=== PATIENT | male | born 1990 | race African-American/Black ===

== ENCOUNTER 2018-11-01 08:03 | Inpatient (IN) | payer OTHER ==
[~2018-11-01] VITALS: Ht 177.8 cm; Wt 87.5 kg
[2018-11-01 08:03] VITALS: BP 141/78; BP 1412/78
[2018-11-01 08:57] LABS: ABSOLUTE NEUTROPHILS 8.3 thou/uL (1.4-8.2); BASOPHILS 0.9 % (0.0-2.0); EOSINOPHILS 0.1 % (0.0-3.0); HEMATOCRIT 45.7 % (42.0-52.0); LYMPHOCYTES 18.5 % (24.0-44.0); MCH 22.8 pg (26.0-34.0); MCHC 32.7 g/dL (28.0-37.0); MCV 69.7 fL (80.0-100.0); PLATELET COUNT 508 thou/uL (150-400); POLYS 71.5 % (36.0-66.0); RBC 6.56 mil/uL (4.50-6.00); RDW 14.5 % (10.5-14.5); WBC 11.6 thou/uL (4.0-11.0)
[2018-11-01 09:12] LABS: ANION GAP 18 mmol/L (7-16); BUN 14 mg/dL (7-18); CALCIUM 10.4 mg/dL (8.5-10.1); CHLORIDE 98 mmol/L (98-107); CO2 21 mmol/L (21-32); CREATININE 1.1 mg/dL (0.7-1.3); GLUCOSE 200 mg/dL (74-106); SODIUM 137 mmol/L (136-145)
[2018-11-01 09:19] LABS: ALBUMIN 4.6 g/dL (3.4-5.0); LIPASE 50 U/L (73-393); SALICYLATE < 2.8 mg/dL (2.8-20.0); SGOT 30 U/L (15-37); SGPT 49 U/L (30-65); TOTAL BILIRUBIN 0.6 mg/dL (<0.1-1.0)
[2018-11-01 09:22] LABS: HYPOCHROMASIA 1+; MICROCYTES 1+
[2018-11-01 10:49] LABS: URINE BILIRUBIN NEGATIVE (Negative); URINE BLOOD NEGATIVE (Negative); URINE CLARITY CLEAR; URINE COLOR YELLOW; URINE GLUCOSE-RANDOM* NEGATIVE (Negative); URINE KETONES 1+ (Negative); URINE LEUKOCYTES-REFLEX NEGATIVE (Negative); URINE NITRITE-REFLEX NEGATIVE (Negative); URINE PROTEIN (DIPSTICK) 2+ (Negative); URINE UROBILINOGEN 0.2 E.U./dl (0.2-1.0)
[2018-11-01 10:59] LABS: BACTERIA-REFLEX None Seen /HPF (None Seen); CASTS None Seen /LPF (None Seen); SQUAMOUS None Seen /LPF (0-3); URINE RBC None Seen /HPF (0-2); URINE WBC-REFLEX 0-5 Rare /HPF (0-5)
[2018-11-01 11:00] LABS: CRYSTALS None Seen /LPF (None Seen)
[2018-11-01 11:01] LABS: AMP/METHAMP Negative (Negative); BARBITURATES Negative (Negative); BENZODIAZEPINES Negative (Negative); COCAINE Negative (Negative); METHADONE Negative (Negative); OPIATES POSITIVE (Negative); PCP Negative (Negative)
[2018-11-01 14:48] VITALS: BP 168/95
[2018-11-01 15:45] VITALS: BP 160/73
[2018-11-01 15:50] VITALS: BP 160/73
--- NOTE | 2018-11-01 16:49 | NUR ---
ADMISSION ASSESMENT COMPLETED. A/O. PLEASANT. ANXIOUS. C/O PAIN. SUBOXONE GIVEN ORDERED. PT HAD WARM SHOWER. RESTING IN BED AT THIS TIME. WILL CONT. TO MONITOR.
[2018-11-01 16:59] LABS: % SATURATION 7 % (20-39); IRON 29 ug/dL (65-175); TIBC 410 ug/dL (250-450)
[2018-11-01 17:00] LABS: INR 1.1; PROTIME 11.2 Seconds (9.3-11.4)
--- NOTE | 2018-11-01 17:25 | NUR ---
PT PACING IN AND OUT OF ROOM. STEADY GAIT. NOTED IV OUT. PT LAYING IN BED AT THIS TIME. WILL CONT. TO MONITOR.
[2018-11-01 17:27] LABS: TSH 0.43 uIU/mL (0.358-3.740)
[2018-11-01 17:48] VITALS: BP 168/80
--- NOTE | 2018-11-01 17:50 | NUR ---
PT NOTED TO BE TRYING TO CALL SOMEBODY ON PHONE. STATED HE WAS TRYING REACH HIS MOM. ASSISTED WITH DIALING PHONE NUMBER.
--- NOTE | 2018-11-01 20:54 | NUR ---
ASSESSMENT COMPLETED. [facility] S[facility]. PT HAD AN EPISODE OF EMESIS. PT OBSERVED SIPPING ON 7-UP. AT ONE POINT PT OBSERVED WALKING TO THE ELEVATOR GOING TO PICK HIS FRIENDS FROM [address] [place] [address], HE WAS CLEARLY ADVISED NOT TO LEAVE THE BUILDING. PT ALSO REMINDED THAT HE CANNOT GO OUT TO SMOKE, OFFERED A NICOTINE PATCH BUT HE WAS NOT INTERESTED. 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 THEREAFTER AT ABOUT 2019, A FRIEND CAME IN TO VISIT. AT ABOUT 2029, PT OBSERVED WALKING IN HALLWAY, HE STATED HE WAS GOING TO TAKE HIS FRIEND TO THE VENDING MACHINE. ANYWAY, PT APPARENTLY LEFT THE UNIT AND SECURITY WAS NOTIFIED BY 2034. NICKOLAS BETANCUR NOTIFIED BY 0HRS AND SUPERIVISOR ALSO NOTIFIED.PT NOT HERE BY THIS TIME.
[2018-11-02 14:11] LABS: HEPATITIS C VIRUS AB 0.4 (0.0-0.9)
== END 2018-11-01 21:10 | disposition left against medical advice (07) | DRG 894 ==
LOC: ER 08:03 → EROBS 11:53 → 4E 15:44
PROVIDERS: Emergency Medicine; Internal Medicine Geriatric Medicine; ADMIT Hospitalist
DX: F11.23 Opioid dependence with withdrawal (principal); E86.0 Dehydration; R73.9 Hyperglycemia, unspecified; F12.90 Cannabis use, unspecified, uncomplicated
CPT/HCPCS: 10084

== ENCOUNTER 2018-11-01 22:02 | Emergency (ER) | payer OTHER ==
[~2018-11-01] VITALS: Ht 177.8 cm; Wt 86.2 kg
[2018-11-01 22:26] VITALS: BP 114/60
[2018-11-01 23:53] LABS: AMP/METHAMP POSITIVE (Negative); BARBITURATES Negative (Negative); BENZODIAZEPINES Negative (Negative); COCAINE Negative (Negative); METHADONE Negative (Negative); OPIATES POSITIVE (Negative); PCP Negative (Negative)
[2018-11-01 23:58] LABS: ABSOLUTE NEUTROPHILS 11.5 thou/uL (1.4-8.2); BASOPHILS 0.5 % (0.0-2.0); EOSINOPHILS 0.1 % (0.0-3.0); HEMATOCRIT 41.3 % (42.0-52.0); HEMOGLOBIN 13.6 gm/dL (14.0-18.0); LYMPHOCYTES 10.7 % (24.0-44.0); MCH 23.2 pg (26.0-34.0); MCHC 32.8 g/dL (28.0-37.0); MCV 70.6 fL (80.0-100.0); MONOCYTES 6.6 % (1.0-8.0); PLATELET COUNT 462 thou/uL (150-400); POLYS 82.1 % (36.0-66.0); RBC 5.85 mil/uL (4.50-6.00); RDW 14.7 % (10.5-14.5)
[2018-11-02 00:08] LABS: CALCIUM 9.3 mg/dL (8.5-10.1); CREATININE 1.2 mg/dL (0.7-1.3); POTASSIUM 4.3 mmol/L (3.5-5.1)
== END 2018-11-02 02:06 | disposition still patient (30) ==
LOC: ER 22:02 → EROBS 23:43 → ER 11-02 02:06 → EROBS 11-02 08:00
PROVIDERS: Emergency Medicine
DX: F11.23 Opioid dependence with withdrawal (principal); F17.210 Nicotine dependence, cigarettes, uncomplicated